=== PATIENT | male | born 1980 | race Two or more races ===

== ENCOUNTER 2021-09-08 03:14 | Observation (INO) | payer OTHER ==
[~2021-09-08] VITALS: Ht 172.7 cm; Wt 93.0 kg
[2021-09-08] MEDS ORDERED: KETOROLAC 30 MG/ML VIAL. IVP ONE (04:00)
[2021-09-08] MEDS ORDERED: fentaNYL PF VIAL 100 MCG/2 ML VIAL IVP ONE ×2 (04:00→06:00)
[2021-09-08] MEDS ORDERED: FAMOTIDINE 20 MG/2 ML VIAL IVP ONE (04:00)
[2021-09-08 04:03] LABS: BASO # 0.1 x10^3/uL (0.0-0.2); BASO % 0 % (0-3); EOS # 0.5 x10^3/uL (0.0-0.7); EOS % 3 % (0-3); HEMATOCRIT 48.4 % (39.0-53.0); HEMOGLOBIN 16.7 g/dL (13.0-17.5); LYMPH # 3.2 x10^3/uL (1.0-4.8); LYMPH % 21 % (24-48); MEAN CORPUSCULAR HEMOGLOBIN 29 pg (25-35); MEAN CORPUSCULAR HGB CONC 35 g/dL (31-37); MEAN CORPUSCULAR VOLUME 85 fL (79-100); MONO # 0.9 x10^3/uL (0.0-1.1); MONO % 6 % (0-9); NEUT # 10.3 x10^3/uL (1.8-7.7); NEUT % 69 % (31-73); PLATELET COUNT 355 x10^3/uL (140-400); RED CELL DISTRIBUTION WIDTH 13.2 % (11.5-14.5); WHITE BLOOD COUNT 14.9 x10^3/uL (4.0-11.0)
--- NOTE | 2021-09-08 04:05 | ED.ADGEN ---
Past Medical History Past Surgical History: No Surgical History Smoking Status: Current Every Day Smoker Alcohol Use: Rarely General Adult EDM: Chief Complaint: ABDOMINAL PAIN HPI: HPI: Patient is a 41 year old male coming in for epigastric pain that woke him up about 3 hours prior to arrival. Patient describes the pain as sharp and epiga stric. Patient states last thing he ate was macaroni fried chicken before going to bed about 5 hours before the pain started. Denies any vomiting or diarrhea. Patient took milk of magnesia states that he might be constipated. Patient had a normal bowel movement yesterday. Denies any fevers or cough no abdominal surgical history Review of Systems: Review of Systems: All other systems within normal limits except for as noted in the HPI Current Medications: Current Medications Medications (Trade) Dose Ordered Sig/Amanda Start Time Stop Time Status Last Admin Dose Admin Ceftriaxone Sodium (Rocephin) 1 gm 1X ONCE 09/08/21 07:00 09/08/21 07:07 DC Famotidine (Pepcid Vial) 20 mg 1X ONCE 09/08/21 04:00 09/08/21 04:01 DC 09/08/21 04:10 20 MG Fentanyl Citrate (Fentanyl 2ml Vial) 75 mcg 1X ONCE 09/08/21 06:00 09/08/21 06:01 DC 09/08/21 06:05 75 MCG Info (CONTRAST GIVEN -- Rx MONITORING) 1 each PRN DAILY PRN 09/08/21 04:30 09/10/21 04:29 Iohexol (Omnipaque 300 Mg/ml) 75 ml 1X ONCE 09/08/21 04:15 09/08/21 04:16 DC 09/08/21 04:36 75 ML Ketorolac Tromethamine (Toradol 30mg Vial) 15 mg 1X ONCE 09/08/21 04:00 09/08/21 04:01 DC 09/08/21 04:10 15 MG Levofloxacin/ Dextrose 100 ml @ 100 mls/hr 1X ONCE 09/08/21 07:00 09/08/21 07:59 Metronidazole 100 ml @ 100 mls/hr 1X ONCE 09/08/21 07:00 09/08/21 07:59 Allergies: Allergies: Allergies Coded Allergies Type Severity Reaction Last Updated Verified Penicillins Allergy Unknown 09/08/21 Yes Physical Exam: PE: Constitutional: Well developed, well nourished, no acute distress, non-toxic appearance. [] HENT: Normocephalic, atraumatic, bilateral external ears normal, nose normal. [] Eyes: PERRLA, conjunctiva normal, no discharge. [] Neck: No rigidity, supple, no stridor. [] Cardiovascular: Regular rate and rhythm, brisk cap refill [] Lungs & Thorax: Non labored symmetric respirations, no tachypnea or respiratory distress [] Abdomen: Soft, nondistended epigastric Skin: Warm, dry, no erythema, no rash. [] Back: Unremarkable Extremities: No deformities, range of motion grossly intact, no lower extremity edema [] Neurologic: Alert and oriented X 3, no focal deficits noted. [] Psychologic: Affect normal, judgement normal, mood normal. [] Current Patient Data: Labs: Laboratory Tests Test 09/08/21 03:30 09/08/21 06:07 White Blood Count 14.9 x10^3/uL (4.0-11.0) H Red Blood Count 5.70 x10^6/uL (4.30-5.70) Hemoglobin 16.7 g/dL (13.0-17.5) Hematocrit 48.4 % (39.0-53.0) Mean Corpuscular Volume 85 fL (79-100) Mean Corpuscular Hemoglobin 29 pg (25-35) Mean Corpuscular Hemoglobin Concent 35 g/dL (31-37) Red Cell Distribution Width 13.2 % (11.5-14.5) Platelet Count 355 x10^3/uL (140-400) Neutrophils (%) (Auto) 69 % (31-73) Lymphocytes (%) (Auto) 21 % (24-48) L Monocytes (%) (Auto) 6 % (0-9) Eosinophils (%) (Auto) 3 % (0-3) Basophils (%) (Auto) 0 % (0-3) Neutrophils # (Auto) 10.3 x10^3/uL (1.8-7.7) H Lymphocytes # (Auto) 3.2 x10^3/uL (1.0-4.8) Monocytes # (Auto) 0.9 x10^3/uL (0.0-1.1) Eosinophils # (Auto) 0.5 x10^3/uL (0.0-0.7) Basophils # (Auto) 0.1 x10^3/uL (0.0-0.2) Sodium Level 139 mmol/L (136-145) Potassium Level 3.6 mmol/L (3.5-5.1) Chloride Level 103 mmol/L (98-107) Carbon Dioxide Level 25 mmol/L (21-32) Anion Gap 11 (6-14) Blood Urea Nitrogen 10 mg/dL (8-26) Creatinine 0.9 mg/dL (0.7-1.3) Estimated GFR (Cockcroft-Gault) 93.0 BUN/Creatinine Ratio 11 (6-20) Glucose Level 121 mg/dL (70-99) H Calcium Level 8.7 mg/dL (8.5-10.1) Total Bilirubin 0.4 mg/dL (0.2-1.0) Aspartate Amino Transferase (AST) 17 U/L (15-37) Alanine Aminotransferase (ALT) 39 U/L (16-63) Alkaline Phosphatase 95 U/L (46-116) Total Protein 7.7 g/dL (6.4-8.2) Albumin 3.8 g/dL (3.4-5.0) Albumin/Globulin Ratio 1.0 (1.0-1.7) Lipase 86 U/L (73-393) Urine Collection Type Unknown Urine Color Yellow Urine Clarity Clear Urine pH 8.5 (<5.0-8.0) Urine Specific [place] >=1.030 (1.000-1.030) Urine Protein Negative mg/dL (NEG-TRACE) Urine Glucose (UA) 100 mg/dL (NEG) Urine Ketones (Stick) 40 mg/dL (NEG) Urine Blood Negative (NEG) Urine Nitrite Negative (NEG) Urine Bilirubin Negative (NEG) Urine Urobilinogen Dipstick 0.2 mg/dL (0.2 mg/dL) Urine Leukocyte Esterase Negative (NEG) Urine RBC 0 /HPF (0-2) Urine WBC Rare /HPF (0-4) Urine Squamous Epithelial Cells Few /LPF Urine Bacteria 0 /HPF (0-FEW) Laboratory Tests 09/08/21 03:30 Laboratory Tests 09/08/21 03:30 Vital Signs: Vital Signs Date Time Temp Pulse Resp B/P (MAP) Pulse Ox O2 Delivery O2 Flow Rate FiO2 09/08/21 06:05 18 09/08/21 05:31 74 145/86 (105) 96 Room Air 09/08/21 03:20 97.8 97.8 EKG: EKG: [] Heart Score: C/O Chest Pain: No Risk Factors: Risk Factors: DM, Current or recent (<one month) smoker, HTN, HLP, family history of CAD, obesity. Risk Scores: Score 0 - 3: 2.5% MACE over next 6 weeks - Discharge Home Score 4 - 6: 20.3% MACE over next 6 weeks - Admit for Clinical Observation Score 7 - 10: 72.7% MACE over next 6 weeks - Early Invasive Strategies Radiology/Procedures: Radiology/Procedures: [facility] [address] [place] [address] IMAGING REPORT Signed PATIENT: MERLIN HOLLEY ACCOUNT: [id number] : 1980 LOCATION: ER AGE: 41 SEX: M EXAM STATUS: REG ER ORD. PHYSICIAN: SUDHA DAWSON MD REASON: upper abd pain, OMNI 300 75 ML IV PROCEDURE: CT ABD PELV W/ IV CONTRST ONLY PQRS Compliance Statement: One or more of the following individualized dose reduction techniques were utilized for this examination: 1. Automated exposure control 2. Adjustment of the mA and/or kV according to patient size 3. Use of iterative reconstruction technique CT ABDOMEN+PELVIS W Clinical Indication: Reason: upper abd pain, Comparison: None. Technique: Helical CT imaging of the abdomen and pelvis is performed after 75 cc of Omnipaque 300 IV contrast. Oral contrast not administered. Findings: There is bilateral dependent atelectasis. Right middle lobe calcified granuloma. Cardiac size is normal. There is mild pericholecystic induration, coronal image 23. Gallbladder mildly distended. Liver, spleen, pancreas, adrenal glands and abdominal aorta, and kidneys are normal. The stomach is unremarkable. There is a small fat-containing periumbilical hernia. There is a tiny fat-containing supraumbilical hernia, sagittal image 36. There is no dilated small bowel. No colon wall thickening. The appendix is normal. No abdominal adenopathy or free fluid. The urinary bladder is normal. The prostate and seminal vesicles are normal. No pelvic free fluid is seen. There is suggestion of small bilateral fat-containing inguinal hernias. No acute bone abnormality. Probable small bone island of the right femoral neck. IMPRESSION: Gallbladder is distended and there is mild pericholecystic induration. Recommend right upper quadrant ultrasound. Electronically signed by: Nikita Ramos MD (09/08/2021 5:23 AM) [facility] DICTATED and SIGNED BY: NIKITA RAMOS MD DATE: 09/08/21 [id number] [] [facility] [address] [place] [address] IMAGING REPORT Signed PATIENT: MERLIN HOLLEY ACCOUNT: [id number] : 1980 LOCATION: ER AGE: 41 SEX: M EXAM STATUS: REG ER ORD. PHYSICIAN: SUDHA DAWSON MD REASON: ruq, distended gallbladder PROCEDURE: ABDOMEN LTD Right upper quadrant abdominal ultrasound History: Reason: ruq pain, distended gallbladder, abnormal CT. Comparison: CT abdomen and pelvis of contrast, earlier same day. Technique: Transabdominal ultrasound images are obtained. Findings: The liver is normal in echotexture. The liver measures 13.5 cm. Ultrasound is not sensitive for detecting solid liver lesions. Portal flow is hepatopetal. The common bile duct diameter measures 2 mm. The gallbladder wall measures 4 mm. Per report, sonographic Ferguson sign is negative. There is no cholelithiasis. Gallbladder is distended. There is pericholecystic fluid. The pancreas is obscured due to overlying bowel gas. The right kidney is normal in echotexture and measures 12.5 cm. Corticomedullar y differentiation is preserved. There is no hydronephrosis. IVC is unremarkable. IMPRESSION: Gallbladder is distended and there is pericholecystic fluid. There is slight gallbladder wall thickening. No cholelithiasis is seen. Sonographic Ferguson sign is negative. Findings are equivocal. Electronically signed by: Nikita Ramos MD (09/08/2021 6:31 AM) [facility] DICTATED and SIGNED BY: NIKITA RAMOS MD DATE: 09/08/21 [id number] 0 Course & Med Decision Making: Course & Med Decision Making Pertinent Labs and Imaging studies reviewed. (See chart for details) Patient's pain is controlled. CT findings show distended gallbladder, radiologist recommend right upper quadrant ultrasound. Pending ultrasound results at shift change. Care transition to Dr. Santo. [] Received patient in signout with ultrasound pending. US raises concern for cholecystitis with presence of mild gallbladder wall thickening, GB distention, and pericholecystic fluid. Discussed with Dr. Byrd, of general surgery, who will plan on cholecystectomy l ater today. Given a dose of IV ceftriaxone and metronidazole. Discussed with hospitalist, Dr. Brothers, who accepted patient for admission. 0715 [employer] Disclaimer: [employer] Disclaimer: This electronic medical record was generated, in whole or in part, using a voice recognition dictation system. Departure Departure Impression: Primary Impression: Cholecystitis Disposition: ADMITTED INPATIENT Admitting Physician: OBI Gillette) Condition: STABLE SUDHA DAWSON MD Sep 08, 2021 04:05 GAIL SANTO MD Sep 08, 2021 06:50
[2021-09-08 04:14] LABS: CALCIUM 8.7 mg/dL (8.5-10.1); CREATININE 0.9 mg/dL (0.7-1.3); POTASSIUM 3.6 mmol/L (3.5-5.1)
[2021-09-08] MEDS ORDERED: IOHEXOL 300 MG/ML 100ML VIAL. IV ONE (04:15)
[2021-09-08 04:20] LABS: ALBUMIN 3.8 g/dL (3.4-5.0); TOTAL BILIRUBIN 0.4 mg/dL (0.2-1.0); TOTAL PROTEIN 7.7 g/dL (6.4-8.2)
[2021-09-08] MEDS ORDERED: CONTRAST GIVEN. MC PRN (04:30)
--- NOTE | 2021-09-08 05:25 | RAD ---
PQRS Compliance Statement: One or more of the following individualized dose reduction techniques were utilized for this examinat ion: 1. Automated exposure control 2. Adjustment of the mA and/or kV according to patient size 3. Use of iterative reconstruction technique CT ABDOMEN+PELVIS W Clinical Indication: Reason: upper abd pain, Comparison: None. Technique: Helical CT imaging of the abdomen and pelvis is performed after 75 cc of Omnipaque 300 IV contrast. Oral contrast not administered. Findings: There is bilateral dependent atelectasis. Right middle lobe calcified granuloma. Cardiac size is norm al. There is mild pericholecystic induration, coronal image 23. Gallbladder mildly distended. Liver, sple en, pancreas, adrenal glands and abdominal aorta, and kidneys are normal. The stomach is unremarkable. There is a small fat-containing periumbilical hernia. There is a tiny fa t-containing supraumbilical hernia, sagittal image 36. There is no dilated small bowel. No colon wall thickening. The appendix is normal. No abdominal adenopathy or free fluid. The urinary bladder is normal. The prostate and seminal vesicles are normal. No pelvic free fluid is seen. There is suggestion of small bilateral fat-containing inguinal hernias. No acute bone abnormality. Probable small bone island of the right femoral neck. IMPRESSION: Gallbladder is distended and there is mild pericholecystic induration. Recommend right upper quadrant ultrasound. Electronically signed by: Nikita Ramos MD (09/08/2021 5:23 AM) [facility]
[2021-09-08 06:19] LABS: BILIRUBIN,URINE NEGATIVE (NEG); CLARITY,URINE CLEAR; COLOR,URINE YELLOW; NITRITE,URINE NEGATIVE (NEG); PH,URINE 8.5 (<5.0-8.0); PROTEIN,URINE NEGATIVE (NEG-TRACE); UROBILINOGEN,URINE 0.2 mg/dL (0.2 mg/dL)
[2021-09-08 06:26] LABS: BACTERIA,URINE 0 /HPF (0-FEW); RBC,URINE 0 /HPF (0-2); WBC,URINE RARE /HPF (0-4)
--- NOTE | 2021-09-08 06:34 | RAD ---
Right upper quadrant abdominal ultrasound History: Reason: ruq pain, distended gallbladder, abnormal CT. Comparison: CT abdomen and pelvis of contrast, earlier same day. Technique: Transabdominal ultrasound images are obtained. Findings: The liver is normal in echotexture. The liver measures 13.5 cm. Ultrasound is not sensitive for detec ting solid liver lesions. Portal flow is hepatopetal. The common bile duct diameter measures 2 mm. The gallbladder wall measures 4 mm. Per report, sonographic Ferguson sign is negative. There is no chol elithiasis. Gallbladder is distended. There is pericholecystic fluid. The pancreas is obscured due to overlying bowel gas. The right kidney is normal in echotexture and measures 12.5 cm. Corticomedullary differentiation is preserved. There is no hydronephrosis. IVC is unremarkable. IMPRESSION: Gallbladder is distended and there is pericholecystic fluid. There is slight gallbladder wall thicken ing. No cholelithiasis is seen. Sonographic Ferguson sign is negative. Findings are equivocal. Electronically signed by: Nikita Ramos MD (09/08/2021 6:31 AM) [facility]
[2021-09-08] MEDS ORDERED: cefTRIAXone IV Push 1 GM VIAL. IVP ONE (07:00)
[2021-09-08] MEDS ORDERED: ZOLPIDEM 5 MG TABLET. PO PRN (07:45)
[2021-09-08] MEDS ORDERED: ONDANSETRON PF 4 MG/2 ML VIAL. IVP PRN ×2 (07:45→13:45)
[2021-09-08] MEDS ORDERED: ACETAMINOPHEN 325 MG TABLET. PO PRN (07:45)
[2021-09-08] MEDS ORDERED: CALCIUM CARBONATE 500 MG TAB.CHEW PO PRN (07:45)
[2021-09-08] MEDS ORDERED: MORPHINE SULFATE 2 MG/ML INJ. IV PRN ×2 (07:45)
[2021-09-08] MEDS ORDERED: ELECTROLYTE (NON-ICU) PROTOCOL. MC PRN (07:45)
--- NOTE | 2021-09-08 07:45 | PDOC1 ---
History and Physical Date of Service: DOS: DATE: 09/08/21 TIME: 07:40 Chief Complaint: Chief Complain: Abdominal pain History of Present Illness: HPI: Patient is a 41-year-old male presented overnight due to few hour history of abdominal pain. Patient said he he ate dinner yesterday and went to bed shortly after without any problems. He said he was awoken in the middle of the night with the pain that he says is sharp in right upper quadrant and epigastrium. Unable to tolerate the pain he presented to the emergency room. Patient reports he has never had an occurrence like this before. Denying any vomiting diarrhea. No previous intra-abdominal surgeries Work-up in the emergency room was concerning for early cholecystitis. Surgical team consulted emergency room planning for surgical invention sometime today per report from ED. Past Medical/Surgical History: PMH/PSH: Denies any past medical history Allergies: Allergies: Coded Allergies: Penicillins (Verified Allergy, Unknown, 09/08/21) Family History: Family History: None none Social History: Social History: Daily tobacco smoker. Denies drug use. Occasional alcohol use. Current Medications: Current Medications Current Medications Famotidine (Pepcid Vial) 20 mg 1X ONCE IVP Last administered on 09/08/21at 04:10; Start 09/08/21 at 04:00; Stop 09/08/21 at 04:01; Status DC Ketorolac Tromethamine (Toradol 30mg Vial) 15 mg 1X ONCE IVP Last administered on 09/08/21at 04:10; Start 09/08/21 at 04:00; Stop 09/08/21 at 04:01; Status DC Fentanyl Citrate (Fentanyl 2ml Vial) 75 mcg 1X ONCE IVP Last administered on 09/08/21at 04:07; Start 09/08/21 at 04:00; Stop 09/08/21 at 04:02; Status DC Iohexol (Omnipaque 300 Mg/ml) 75 ml 1X ONCE IV Last administered on 09/08/21at 04:36; Start 09/08/21 at 04:15; Stop 09/08/21 at 04:16; Status DC Info (CONTRAST GIVEN -- Rx MONITORING) 1 each PRN DAILY PRN MC SEE COMMENTS; Start 09/08/21 at 04:30; Stop 09/10/21 at 04:29 Fentanyl Citrate (Fentanyl 2ml Vial) 75 mcg 1X ONCE IVP Last administered on 09/08/21at 06:05; Start 09/08/21 at 06:00; Stop 09/08/21 at 06:01; Status DC Metronidazole 100 ml @ 100 mls/hr 1X ONCE IV Last administered on 09/08/21at 07:17; Start 09/08/21 at 07:00; Stop 09/08/21 at 07:59 Ceftriaxone Sodium (Rocephin) 1 gm 1X ONCE IVP Last administered on 09/08/21at 07:17; Start 09/08/21 at 07:00; Stop 09/08/21 at 07:07; Status DC Levofloxacin/ Dextrose 100 ml @ 100 mls/hr 1X ONCE IV Last administered on 09/08/21at 07:17; Start 09/08/21 at 07:00; Stop 09/08/21 at 07:59 Heparin Sodium (Porcine) 1000 unit/Sodium Chloride 1,001 ml @ 1,001 mls/hr 1X ONCE IRR ; Start 09/08/21 at 09:00; Stop 09/08/21 at 09:59 ROS: Review of Systems Review of System Unless noted in HPI 14 point review systems was negative Physical Exam: Vital Signs: Vital Signs Date Time Temp Pulse Resp B/P (MAP) Pulse Ox O2 Delivery O2 Flow Rate FiO2 09/08/21 06:05 18 09/08/21 05:31 74 145/86 (105) 96 Room Air 09/08/21 03:20 97.8 97.8 Physcial Exam: GEN: No apparent distress. Alert and oriented HEENT: Normal cephalic, atraumatic, external auditory canals are patent EYES: Extraocular muscles are intact, pupil are equally round and reactive to light and accommodation MUSCULOSKELETAL: Well developed , well nourished, good range of motion ENDOCRINE: No thyromegaly was palpated LYMPHATICS: No cervical chain or axillary nodes were noted HEMATOPOIETIC: No bruising NECK: Supple, no JVD, no thyromegaly was noted LUNGS: Clear to auscultation in all lung nieto without rhonchi or wheezing HEART: RRR, S!, S2 present. Peripheral pulses intact, no obvious murmurs noted ABDOMEN: Diffusely tender however very tender in right upper quadrant and epigastrium. Normal bowel sounds. EXTREMITIES: Without clubbing, cyanosis, or edema. Pedal pulses intact. NEUROLOGIC: Normal speech and tone. A&O x 3, moves all extremities, no obvious focal deficits PSYCHIATRIC: Normal affect, normal mood. Stable SKIN: No ulcerations or rashes, good skin turgor, no jaundice VASCULAR: Good capillary refill, neurovascular bundle appears to be intact Labs: Labs: Laboratory Tests Test 09/08/21 03:30 09/08/21 06:07 White Blood Count 14.9 x10^3/uL (4.0-11.0) Red Blood Count 5.70 x10^6/uL (4.30-5.70) Hemoglobin 16.7 g/dL (13.0-17.5) Hematocrit 48.4 % (39.0-53.0) Mean Corpuscular Volume 85 fL (79-100) Mean Corpuscular Hemoglobin 29 pg (25-35) Mean Corpuscular Hemoglobin Concent 35 g/dL (31-37) Red Cell Distribution Width 13.2 % (11.5-14.5) Platelet Count 355 x10^3/uL (140-400) Neutrophils (%) (Auto) 69 % (31-73) Lymphocytes (%) (Auto) 21 % (24-48) Monocytes (%) (Auto) 6 % (0-9) Eosinophils (%) (Auto) 3 % (0-3) Basophils (%) (Auto) 0 % (0-3) Neutrophils # (Auto) 10.3 x10^3/uL (1.8-7.7) Lymphocytes # (Auto) 3.2 x10^3/uL (1.0-4.8) Monocytes # (Auto) 0.9 x10^3/uL (0.0-1.1) Eosinophils # (Auto) 0.5 x10^3/uL (0.0-0.7) Basophils # (Auto) 0.1 x10^3/uL (0.0-0.2) Sodium Level 139 mmol/L (136-145) Potassium Level 3.6 mmol/L (3.5-5.1) Chloride Level 103 mmol/L (98-107) Carbon Dioxide Level 25 mmol/L (21-32) Anion Gap 11 (6-14) Blood Urea Nitrogen 10 mg/dL (8-26) Creatinine 0.9 mg/dL (0.7-1.3) Estimated GFR (Cockcroft-Gault) 93.0 BUN/Creatinine Ratio 11 (6-20) Glucose Level 121 mg/dL (70-99) Calcium Level 8.7 mg/dL (8.5-10.1) Total Bilirubin 0.4 mg/dL (0.2-1.0) Aspartate Amino Transf (AST/SGOT) 17 U/L (15-37) Alanine Aminotransferase (ALT/SGPT) 39 U/L (16-63) Alkaline Phosphatase 95 U/L (46-116) Total Protein 7.7 g/dL (6.4-8.2) Albumin 3.8 g/dL (3.4-5.0) Albumin/Globulin Ratio 1.0 (1.0-1.7) Lipase 86 U/L (73-393) Urine Collection Type Unknown Urine Color Yellow Urine Clarity Clear Urine pH 8.5 (<5.0-8.0) Urine Specific [place] >=1.030 (1.000-1.030) Urine Protein Negative mg/dL (NEG-TRACE) Urine Glucose (UA) 100 mg/dL (NEG) Urine Ketones (Stick) 40 mg/dL (NEG) Urine Blood Negative (NEG) Urine Nitrite Negative (NEG) Urine Bilirubin Negative (NEG) Urine Urobilinogen Dipstick 0.2 mg/dL (0.2 mg/dL) Urine Leukocyte Esterase Negative (NEG) Urine RBC 0 /HPF (0-2) Urine WBC Rare /HPF (0-4) Urine Squamous Epithelial Cells Few /LPF Urine Bacteria 0 /HPF (0-FEW) Laboratory Tests Test 09/08/21 03:30 09/08/21 06:07 White Blood Count 14.9 x10^3/uL (4.0-11.0) Red Blood Count 5.70 x10^6/uL (4.30-5.70) Hemoglobin 16.7 g/dL (13.0-17.5) Hematocrit 48.4 % (39.0-53.0) Mean Corpuscular Volume 85 fL (79-100) Mean Corpuscular Hemoglobin 29 pg (25-35) Mean Corpuscular Hemoglobin Concent 35 g/dL (31-37) Red Cell Distribution Width 13.2 % (11.5-14.5) Platelet Count 355 x10^3/uL (140-400) Neutrophils (%) (Auto) 69 % (31-73) Lymphocytes (%) (Auto) 21 % (24-48) Monocytes (%) (Auto) 6 % (0-9) Eosinophils (%) (Auto) 3 % (0-3) Basophils (%) (Auto) 0 % (0-3) Neutrophils # (Auto) 10.3 x10^3/uL (1.8-7.7) Lymphocytes # (Auto) 3.2 x10^3/uL (1.0-4.8) Monocytes # (Auto) 0.9 x10^3/uL (0.0-1.1) Eosinophils # (Auto) 0.5 x10^3/uL (0.0-0.7) Basophils # (Auto) 0.1 x10^3/uL (0.0-0.2) Sodium Level 139 mmol/L (136-145) Potassium Level 3.6 mmol/L (3.5-5.1) Chloride Level 103 mmol/L (98-107) Carbon Dioxide Level 25 mmol/L (21-32) Anion Gap 11 (6-14) Blood Urea Nitrogen 10 mg/dL (8-26) Creatinine 0.9 mg/dL (0.7-1.3) Estimated GFR (Cockcroft-Gault) 93.0 BUN/Creatinine Ratio 11 (6-20) Glucose Level 121 mg/dL (70-99) Calcium Level 8.7 mg/dL (8.5-10.1) Total Bilirubin 0.4 mg/dL (0.2-1.0) Aspartate Amino Transf (AST/SGOT) 17 U/L (15-37) Alanine Aminotransferase (ALT/SGPT) 39 U/L (16-63) Alkaline Phosphatase 95 U/L (46-116) Total Protein 7.7 g/dL (6.4-8.2) Albumin 3.8 g/dL (3.4-5.0) Albumin/Globulin Ratio 1.0 (1.0-1.7) Lipase 86 U/L (73-393) Urine Collection Type Unknown Urine Color Yellow Urine Clarity Clear Urine pH 8.5 (<5.0-8.0) Urine Specific [place] >=1.030 (1.000-1.030) Urine Protein Negative mg/dL (NEG-TRACE) Urine Glucose (UA) 100 mg/dL (NEG) Urine Ketones (Stick) 40 mg/dL (NEG) Urine Blood Negative (NEG) Urine Nitrite Negative (NEG) Urine Bilirubin Negative (NEG) Urine Urobilinogen Dipstick 0.2 mg/dL (0.2 mg/dL) Urine Leukocyte Esterase Negative (NEG) Urine RBC 0 /HPF (0-2) Urine WBC Rare /HPF (0-4) Urine Squamous Epithelial Cells Few /LPF Urine Bacteria 0 /HPF (0-FEW) Assessment/Plan Assessment/Plan Abdominal pain secondary to gallbladder distention cholecystitis -1 day history abdominal pain. ED work-up showed gallbladder distention concerning for cholecystitis -Surgery consulted planning surgery sometime today -N.p.o. -Meds to resume -As needed pain control -As needed nausea control -Will evaluate again after surgery. Justifications for Admission Other Justification VLADIMIR ESTRADA MD Sep 08, 2021 07:45
[2021-09-08 09:00] VITALS: BP 135/82
[2021-09-08] MEDS: SENNOSIDES/DOCUSATE 8.6/50MG TABLET. PO SCH ×2 (09:00→20:19)
[2021-09-08] MEDS ORDERED: HEPARIN 1,000 UNIT in IV NORMAL SALINE 1,000 ML for SURG PERIOP IRR ONE (09:00)
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
[2021-09-08] MEDS ORDERED: BUPIVACAINE-EPI 0.5% 30 ML VIAL KIT. ONE (10:57)
[2021-09-08] MEDS ORDERED: IOHEXOL 300 MG/ML 50 ML VIAL. ONE (10:58)
[2021-09-08] MEDS ORDERED: SURGICEL HEMOSTAT 4X8 EACH. ONE (10:58)
[2021-09-08] MEDS ORDERED: BISACODYL 10 MG SUPP.RECT. ONE (10:58)
[2021-09-08] MEDS ORDERED: SUCCINYLCHOLINE 200 MG/10 ML VIAL. ONE (11:06)
[2021-09-08] MEDS ORDERED: ROCURONIUM 50 MG/5 ML VIAL. ONE (11:06)
[2021-09-08] MEDS ORDERED: fentaNYL PF VIAL 100 MCG/2 ML VIAL ONE ×2 (11:07→12:00)
[2021-09-08] MEDS ORDERED: PROCHLORPERAZINE 10 MG/2 ML VIAL. IVP PRN (11:15)
[2021-09-08] MEDS ORDERED: MORPHINE SULFATE 2 MG/ML INJ. IVP PRN (11:15)
[2021-09-08] MEDS ORDERED: fentaNYL PF VIAL 100 MCG/2 ML VIAL IVP PRN ×2 (11:15)
[2021-09-08] MEDS ORDERED: HYDROmorphone 2 MG/ML INJ. IVP PRN (11:15)
[2021-09-08] MEDS ORDERED: IV RINGERS,LACTATED 1000ML 1,000 ML IV SCH (11:15)
[2021-09-08] MEDS ORDERED: MIDAZOLAM HCL/PF 2 MG/2 ML VIAL. ONE (11:46)
[2021-09-08] MEDS ORDERED: DEXAMETHASONE SOD PHOS 4 MG/ML VIAL ONE (12:02)
[2021-09-08] MEDS ORDERED: PROPOFOL 10 MG/ML (20ML) VIAL. IV ONE ×3 (12:02)
[2021-09-08] MEDS ORDERED: ONDANSETRON PF 4 MG/2 ML VIAL. ONE (12:02)
[2021-09-08] MEDS ORDERED: PHENYLEPHRINE in 0.9% NACL PF 1 MG/10 ML SYRINGE. IV ONE (12:02)
[2021-09-08] MEDS ORDERED: IOHEXOL 300 MG/ML 50 ML VIAL. IV ONE (12:13)
[2021-09-08] MEDS ORDERED: SEVOFLURANE > 120 MINUTES. IH ONE (12:40)
--- NOTE | 2021-09-08 13:40 | RAD ---
EXAM: Intraoperative cholangiogram. HISTORY: Pain. Cholecystectomy. COMPARISON: None. FINDINGS: 2 fluoroscopic images were obtained during an intraoperative cholangiogram. The total fluor oscopy time was 13.5 seconds. There is contrast opacification of the downstream biliary tree. No zelda ined stone is seen. IMPRESSION: Intraoperative cholangiogram without evidence of a retained stone. Electronically signed by: Isabel Mendiola MD (09/08/2021 1:38 PM) [id number]
--- NOTE | 2021-09-08 13:43 | PDOC4 ---
OPERATIVE NOTE Date: Date: Sep 08, 2021 Pre-Op Diagnosis: Cholecystitis Post-Op Diagnosis: same Procedure Performed: laparoscopic cholecystectomy with cholangiogram Surgeon: Rakan Jason Anesthesia Type: GETA plus local Blood Loss: 50 Specimans Obtained: gallbladder Findings: edematous gallbladder with adhesions, mild fatty liver, extensive adhesions at midline, normal cholangiogram Complications: none Operative Note: After obtaining informed consent, patient was taken to OR, induced under GETA and prepped in the usual fashion. 5 mm port placed LLQ (away from previous incisions) under laparoscopic guidance. This demonstrates no bowel injury and extensive adhesions in midline. Additional 5 mm port placed RUQ and 11 port placed epigastric, under laparoscopic guidance. Given adhesion findings, umbilical/incisional hernia (asymptomatic) not addressed. Gallbladder grasped and noted to be edematous and extensive adhesions. Adhesions taken down sharply. Critical view was obtained demonstrating cystic duct and artery as only structures into gallbladder. Cystic artery ligated with clips and divided. Cholangiogram obtained via cystic duct and was normal. Cystic duct controlled with hemolok and clips. Gallbladder taken off fossa using cautery, placed in bag, delivered and sent to pathology. Copious irrigation. No evidence of bleeding or other pathology. Ports removed without bleeding. Fascia repaired with 4 0 monocryl. Dressing placed. Patient tolerated procedure well and sent to PACU in stable condition. All counts correct. Wound class is 3. MIKE JASON MD Sep 08, 2021 13:43
[2021-09-08] MEDS ORDERED: DEXTROSE 50% 25 GM / 50ML DISP.SYRIN. IV PRN (13:45)
[2021-09-08] MEDS ORDERED: NALOXONE 0.4 MG/ML VIAL. IV PRN (13:45)
[2021-09-08] MEDS ORDERED: IV NORMAL SALINE 1000ML BAG 1,000 ML IV SCH (13:45)
[2021-09-08 15:00] VITALS: BP 149/89
[2021-09-08 15:15] VITALS: BP 140/78
[2021-09-08] MEDS: HYDROcodone/APAP 5/325MG 1 TAB TABLET PO PRN ×2 (17:00→21:59)
[2021-09-08] MEDS: IV RINGERS,LACTATED 1000ML 1,000 ML IV SCH ×2 (17:00→23:45)
[2021-09-08 19:00] VITALS: BP 154/97
[2021-09-08] MEDS: DOCUSATE SODIUM 100 MG CAPSULE. PO SCH (20:19)
[2021-09-08 23:00] VITALS: BP 138/89
[2021-09-09 02:57] VITALS: BP 151/98
[2021-09-09] MEDS: HYDROcodone/APAP 5/325MG 1 TAB TABLET PO PRN ×2 (05:49→10:55)
[2021-09-09 07:00] VITALS: BP 152/97
--- NOTE | 2021-09-09 09:08 | PDOC ---
SURGICAL PROGRESS NOTE DATE: 09/09/21 TIME: 09:06 Subjective feels well pain managed urinating Vital Signs Vital Signs Date Time Temp Pulse Resp B/P (MAP) Pulse Ox O2 Delivery O2 Flow Rate FiO2 09/09/21 07:00 98.2 88 16 152/97 (115) 98 Room Air 98.2 09/08/21 14:00 10 I&O Intake and Output 09/09/21 06:59 Intake Total 1100 ml Output Total 100 ml Balance 1000 ml Intake Oral 400 ml IV Total 700 ml Output Urine Total 50 ml Estimated Blood Loss 50 ml # Voids 2 General: Alert, Cooperative Abdomen: Soft, Other (ND, lap dressings intact ) Labs Laboratory Tests Test 09/08/21 03:30 09/08/21 06:07 09/08/21 07:45 White Blood Count 14.9 x10^3/uL (4.0-11.0) Red Blood Count 5.70 x10^6/uL (4.30-5.70) Hemoglobin 16.7 g/dL (13.0-17.5) Hematocrit 48.4 % (39.0-53.0) Mean Corpuscular Volume 85 fL (79-100) Mean Corpuscular Hemoglobin 29 pg (25-35) Mean Corpuscular Hemoglobin Concent 35 g/dL (31-37) Red Cell Distribution Width 13.2 % (11.5-14.5) Platelet Count 355 x10^3/uL (140-400) Neutrophils (%) (Auto) 69 % (31-73) Lymphocytes (%) (Auto) 21 % (24-48) Monocytes (%) (Auto) 6 % (0-9) Eosinophils (%) (Auto) 3 % (0-3) Basophils (%) (Auto) 0 % (0-3) Neutrophils # (Auto) 10.3 x10^3/uL (1.8-7.7) Lymphocytes # (Auto) 3.2 x10^3/uL (1.0-4.8) Monocytes # (Auto) 0.9 x10^3/uL (0.0-1.1) Eosinophils # (Auto) 0.5 x10^3/uL (0.0-0.7) Basophils # (Auto) 0.1 x10^3/uL (0.0-0.2) Sodium Level 139 mmol/L (136-145) Potassium Level 3.6 mmol/L (3.5-5.1) Chloride Level 103 mmol/L (98-107) Carbon Dioxide Level 25 mmol/L (21-32) Anion Gap 11 (6-14) Blood Urea Nitrogen 10 mg/dL (8-26) Creatinine 0.9 mg/dL (0.7-1.3) Estimated GFR (Cockcroft-Gault) 93.0 BUN/Creatinine Ratio 11 (6-20) Glucose Level 121 mg/dL (70-99) Calcium Level 8.7 mg/dL (8.5-10.1) Total Bilirubin 0.4 mg/dL (0.2-1.0) Aspartate Amino Transf (AST/SGOT) 17 U/L (15-37) Alanine Aminotransferase (ALT/SGPT) 39 U/L (16-63) Alkaline Phosphatase 95 U/L (46-116) Total Protein 7.7 g/dL (6.4-8.2) Albumin 3.8 g/dL (3.4-5.0) Albumin/Globulin Ratio 1.0 (1.0-1.7) Lipase 86 U/L (73-393) Urine Collection Type Unknown Urine Color Yellow Urine Clarity Clear Urine pH 8.5 (<5.0-8.0) Urine Specific Overton >=1.030 (1.000-1.030) Urine Protein Negative mg/dL (NEG-TRACE) Urine Glucose (UA) 100 mg/dL (NEG) Urine Ketones (Stick) 40 mg/dL (NEG) Urine Blood Negative (NEG) Urine Nitrite Negative (NEG) Urine Bilirubin Negative (NEG) Urine Urobilinogen Dipstick 0.2 mg/dL (0.2 mg/dL) Urine Leukocyte Esterase Negative (NEG) Urine RBC 0 /HPF (0-2) Urine WBC Rare /HPF (0-4) Urine Squamous Epithelial Cells Few /LPF Urine Bacteria 0 /HPF (0-FEW) SARS-CoV-2 Antigen (Rapid) Negative (NEGATIVE) Problem List Problems Medical Problems: (1) Cholecystitis Status: Acute Assessment/Plan s/p fernando ok to or home Justicifation of Admission Dx: Justifications for Admission: Justification of Admission Dx: Yes Comments: cholecystitis BISI KINSEY SEWER PIPE LAYER Sep 09, 2021 09:08
[2021-09-09] MEDS: IV RINGERS,LACTATED 1000ML 1,000 ML IV SCH (09:45)
--- NOTE | 2021-09-09 10:48 | PDOC ---
[employer] PROGRESS NOTE Date of Service DOS: DATE: 09/09/21 TIME: 10:47 Chief Complaint Chief Complaint abdominal pain History of Present Illness History of Present Illness 09/09/2019 Patient seen and examined Discussed with RN Chart reviewed He wants to go home and is tolerating his diet We will go ahead and discharge Vitals/I&O Vitals/I&O: Vital Signs Date Time Temp Pulse Resp B/P (MAP) Pulse Ox O2 Delivery O2 Flow Rate FiO2 09/09/21 07:00 98.2 88 16 152/97 (115) 98 Room Air 98.2 09/08/21 14:00 10 I & O 09/08/21 09/08/21 09/09/21 15:00 23:00 07:00 Intake Total 700 ml 300 ml 100 ml Output Total 100 ml Balance 600 ml 300 ml 100 ml Physical Exam General: Alert, Cooperative Heart: Regular rate, Normal S1, Normal S2 Abdomen: Soft, Other (ND, lap dressings intact ) Extremities: No clubbing, No cyanosis Skin: No rashes, No breakdown Assessment and Plan Assessmemt and Plan Problems Medical Problems: (1) Cholecystitis Status: Acute Assessment/Plan: 1. POD#1 lap fernando 2. discharge pending Comment Review of Relevant I have reviewed the following items demario (where applicable) has been applied. Medications: Current Medications Medications (Trade) Dose Ordered Sig/Amanda Route PRN Reason Start Time Stop Time Status Last Admin Dose Admin Bupivacaine HCl/ Epinephrine Bitart (Sensorcain-Epi 0.5% Kit) 30 ml STK-MED ONCE .ROUTE 09/08/21 10:57 09/08/21 10:58 DC 09/08/21 12:13 Ringer's Solution 1,000 ml @ 30 mls/hr Q24H IV 09/08/21 11:15 09/08/21 23:14 DC 09/08/21 11:13 Cefazolin Sodium/ Dextrose 50 ml @ 100 mls/hr 1X PREOP IV 09/08/21 11:45 09/09/21 18:00 09/08/21 12:20 Iohexol (Omnipaque 300 Mg/ml) 50 ml STK-MED ONCE IV 09/08/21 12:13 09/08/21 12:53 DC 09/08/21 12:13 Ringer's Solution 1,000 ml @ 100 mls/hr Q10H IV 09/08/21 13:45 09/08/21 17:00 Acetaminophen/ Hydrocodone Bitart (Lortab 5/325) 1 tab PRN Q4HRS PRN PO MILD PAIN, 2ND CHOICE 09/08/21 13:45 09/09/21 05:49 Justifications for Admission Other Justification MIHIR BARTLETT III DO Sep 09, 2021 10:48
[2021-09-09] MEDS ORDERED: HYDR-2761 PO (10:53)
[2021-09-09] MEDS: DOCUSATE SODIUM 100 MG CAPSULE. PO SCH (10:55)
[2021-09-09] MEDS: SENNOSIDES/DOCUSATE 8.6/50MG TABLET. PO SCH (10:55)
[2021-09-09 11:00] VITALS: BP 111/63
--- NOTE | 2021-09-09 11:47 | NUR ---
SW following. Chart reviewed, pt from home, room air, regular diet, Rapid COVID-19 negative. Pt had surgery 09/08/21. Discharge order for home with self care.
--- NOTE | 2021-09-09 15:48 | NUR ---
Discharge Note: MERLIN HOLLEY Discharge instructions and discharge home medications reviewed with Patient and a copy given. All questions have been answered and understanding verbalized. The following instructions and handouts were given: Diet, activity, medication list and follow up instructions provided to patient. Discontinued lines and drains: Peripheral IVs discontinued and catheters intact. Patient discharged to Home or Self Care with Spouse via Ambulated
--- NOTE | 2021-09-09 16:16 | DS ---
DATE OF DISCHARGE: 09/09/2021 ADMITTING DIAGNOSIS: Cholecystitis. DISCHARGE DIAGNOSES: Postop day #1 laparoscopic cholecystectomy. HOSPITAL COURSE: The patient is a pleasant 41-year-old male presented with cholecystitis. He was admitted. We consulted Dr. Brothers, he was taken for laparoscopic cholecystectomy. Today, I saw him and examined him. He was tolerating his food, wants to go home, will be discharged home. DISPOSITION: Home. ACTIVITY: As tolerated. DIET: Low sodium. MEDICATIONS: Lortab 5 mg 1 q.4 hours p.r.n. TOTAL TIME: 31 minutes. RENETTA/CURT/FAVIAN DR: RENETTA/melida TID: [id number]
--- NOTE | 2021-09-10 16:07 | PATHOLOGY ---
[facility] Accession Number: [id number] . 01 Material submitted: . gallbladder - GALLBLADDER AND CONTENTS . 01 Clinical history: . CHOLECYSTITIS LAPAROSCOPIC CHOLECYSTECTOMY . 02 Diagnosis: Gallbladder, laparoscopic cholecystectomy: - Cholelithiasis. - Cholesterolosis. - Acute and chronic cholecystitis with increased eosinophils. ([facility]; 09/10/[facility]21) [facility] 09/10/2021 1429 Local . 02 Comment: There is no evidence of malignancy. ([facility]; 09/10/2021) . 02 Electronically signed: . Charly Price MD, Pathologist NPI- [id number] . 01 Gross description: . Fixative: Formalin Labeled: Gallbladder and contents Specimen received: Previously disrupted gallbladder Dimensions: 8.1 x 3.7 x 2.2 cm Serosa: Chan-carrion and roughened with a moderate amount of attached adipose tissue Lymph node: Not identified Mucosa: Velvety, bile-stained with moderate yellow stippling Average wall thickness: Up to 0.8 cm Calculi: A single calculus present displaying a bright yellow and granular appearance, measuring 1.3 cm Abnormalities: None identified . A1- Battery Container Inspector body, fundus, and the cystic duct margin. ([facility]; 09/09/2021) NRI/NRI 09/09/2021 1841 Local . 02 Pathologist provided ICD-10: K80.12, K82.4 . 02 CPT . 384793 Specimen Comment: A courtesy copy of this report has been sent to [phone], [phone] Specimen Comment: [id number] Specimen Comment: Report sent to / DR ESTRADA Specimen Comment: A duplicate report has been generated due to demographic updates. Performed at: 01 [facility] [address], [place], [place] [id number] MD Shun Franco MD Phone: [phone] Performed at: 02 [facility] [address] [place], [place] [id number] MD Charly Price MD Phone: [phone]
== END 2021-09-09 11:20 | disposition home or self-care (01) ==
LOC: ER 03:14 → INTOOBSV 07:17 → 4 NORTH 07:17
PROVIDERS: ADMIT Student in an Organized Health Care Education/Training Program; ATTEND Student in an Organized Health Care Education/Training Program
DX: K81.9 Cholecystitis, unspecified (principal); Z20.822 Contact with and (suspected) exposure to COVID-19; K42.9 Umbilical hernia without obstruction or gangrene; K43.2 Incisional hernia without obstruction or gangrene; K66.0 Peritoneal adhesions (postprocedural) (postinfection); K76.0 Fatty (change of) liver, not elsewhere classified; F17.200 Nicotine dependence, unspecified, uncomplicated; K82.8 Other specified diseases of gallbladder
CPT/HCPCS: 36415; 47563; 74177; 74300; 76705; 80053; 81001; 83690; 85025; 87426; 88304; 96365; 96368; 96375; 96376; 99285; A4213; A4314; A4930; A6219; C1887; G0378; J0330; J0690; J0696; J1100; J1644; J1885; J1956; J2250; J2370; J2405; J2704; J3010; J3490; J7030; J7120; Q9967; G0379; 99291-25